=== PATIENT | male | born 1935 | race African-American/Black ===

== ENCOUNTER 2016-09-25 20:34 | Observation (INO) | payer OTHER ==
--- NOTE | ~2016-09-25 | HP ---
History And Physical [place] [id number] [facility] [place] [address] NAME: EUGENIE VALLEJO : 35 STATUS : ADM Claude PAT#: [id number] AGE: 81 ADM/REG DATE : 09/25/16 MR#: [id number] REPORT SERV DATE: 09/26/16 DICTATED BY: SHOLA ELDRIDGE DATE: 09/26/16 REPORT STATUS : Draft TRANSCRIBED BY: MODL DATE: 09/26/16 DATE OF ADMISSION: 09/25/2016 CHIEF COMPLAINT: An 81-year-old male, presenting with abdominal pain and nausea. HISTORY OF PRESENT ILLNESS: The patient's history was obtained through careful interview with the patient and daughter coupled with review of [facility] medical records. The patient for several days now has felt "a stress in my stomach," but this afternoon the abdominal pain became unbearable, it had been up to about a 9/10 severity and he had not had a bowel movement in about three or four days. He had to call the ambulance because he was feeling so dizzy and lightheaded that he felt he might pass out, and when the ambulance arrived, he finally had a large diarrhea like bowel movement and lost bowel continence. Since that time he has had two more bowel movements as well. He has had nausea, but no vomiting. He describes abdominal pain right now that is a bloating, "ill" feeling, 5/10 severity. He has felt hot, but no fevers or chills. No palpitations. No shortness of breath. No chest pain. He does have urinary frequency and has had mild dysuria with stinging with initiation of urine flow. REVIEW OF SYSTEMS: Otherwise, a 14-point review of systems was obtained and was negative. PAST MEDICAL HISTORY: 1. Small bowel obstruction. 2. Prostate cancer diagnosed in 2014 with 39 radiation treatments, Lupron treatments, with radiation completed in early 2017. 3. Benign prostatic hypertrophy. 4. Abdominal aortic aneurysm 4.2 cm. 5. MRSA and Pseudomonas urinary tract infections. 6. Urethral stricture status post intervention under the care Dr. Monterroso. 7. Neurogenic bladder, but does not self catheterize. 8. Hiatal hernia. 9. Right hip bursitis. 10.Spinal stenosis. 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 Now using a scooter and a walker. PAST SURGICAL HISTORY: History And Physical [address] [place]. [address] NAME: EUGENIE VALLEJO : 35 STATUS : ADM Claude PAT#: [id number] AGE: 81 ADM/REG DATE : 09/25/16 MR#: [id number] REPORT SERV DATE: 09/26/16 DICTATED BY: SHOLA ELDRIDGE DATE: 09/26/16 REPORT STATUS : Draft TRANSCRIBED BY: VERONICA DATE: 09/26/16 1. Colectomy for a volvulus under the care of Dr. Whyte. 2. Small bowel obstruction adhesiolysis. 3. 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 4. Bilateral inguinal hernia repair. 5. Appendectomy. ALLERGIES: TO FLEXERIL AND METHOCARBAMOL. SOCIAL HISTORY: Quit smoking in 1972. No alcohol abuse. He is , but is debilitated from arthritis. The patient uses a cane, walker, or scooter. He has three children. 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 FAMILY HISTORY: Brother and father with lung cancer. Sister with breast cancer. Strong family history of heart disease. CURRENT MEDICATIONS: 1. Cinnamon. 2. Linzess 145 mcg p.o. daily. 3. MiraLAX packet. 4. L-arginine. 5. Cranberry Extract. PHYSICAL EXAMINATION: VITAL SIGNS: Temperature 97.7, pulse 76, blood pressure 115/67, respiratory rate 16, and O2 saturation 100% on 2 L nasal cannula. GENERAL: A pleasant, cooperative male, in no particular distress at this time. HEENT: Pupils equal, round, and reactive to light. No conjunctival pallor. No scleral icterus. Nares are patent. Oropharynx is clear of obstruction. Very dry mucous membranes. NECK: Trachea midline. No thyromegaly. LYMPH: No cervical lymphadenopathy. No supraclavicular lymphadenopathy. RESPIRATORY: Clear to auscultation at bases. No wheezes, rales, or rhonchi. Normal respiratory effort. CARDIOVASCULAR: Regular rate and rhythm. No murmurs, rubs, or gallops. No extremity edema is appreciated. ABDOMEN: Abdomen is now completely soft, maybe some mild distention with tympanic resonance percussed throughout, but the patient does have active bowel tones. No hepatosplenomegaly. DERMATOLOGICAL: Warm and dry extremities. No pallor. No cyanosis. PSYCHIATRIC: Normal affect. Good mood. Alert and oriented x3. LABORATORY DATA: Troponin negative. INR 1.1. White blood cell count 9.2, hemoglobin 14, hematocrit 41, and platelets 181. Sodium 139, potassium 3.9, chloride 103, bicarb 29, BUN 18, creatinine 1.51, and glucose 141. History And Physical [address] [address] NAME: EUGENIE VALLEJO : 35 STATUS : ADM Claude PAT#: [id number] AGE: 81 ADM/REG DATE : 09/25/16 MR#: [id number] REPORT SERV DATE: 09/26/16 DICTATED BY: SHOLA ELDRIDGE DATE: 09/26/16 REPORT STATUS : Draft TRANSCRIBED BY: VERONICA DATE: 09/26/16 STUDIES: 1. Chest x-ray by my own evaluation shows no acute cardiopulmonary process. 2. EKG by my own evaluation shows sinus rhythm, no major abnormalities. 3. CT scan of the abdomen shows partial small bowel obstruction. ASSESSMENT AND PLAN: 1. Dehydration with acute kidney injury. Place on IV fluids. 2. Dysuria. Check urinalysis. 3. Partial small bowel obstruction. Clinically appears to be spontaneously resolving. We will provide supportive care and monitor. KPL/MODL Shola Eldridge M.D. / [id number] CC: Annamarie Martinez M.D. Richard Hunter Jennings III, M.D.
--- NOTE | ~2016-09-25 | DS ---
Discharge Summary [place] [address] [place]. [address] NAME: EUGENIE VALLEJO : 35 STATUS : DIS Claude PAT#: [id number] AGE: 81 ADM/REG DATE : 09/25/16 MR#: [id number] REPORT SERV DATE: 09/28/16 DICTATED BY: DENY EUGENE DATE: 09/27/16 REPORT STATUS : Draft TRANSCRIBED BY: MODL DATE: 09/27/16 ADMISSION DATE: 09/25/2016 DISCHARGE DATE: 09/27/2016 PRINCIPAL DIAGNOSES: Acute food poisoning with intractable nausea, vomiting, diarrhea, dehydration, acute kidney injury. SECONDARY DIAGNOSES: History of prostate cancer with chronic urinary retention. HISTORY OF PRESENT ILLESS: Please see Dr. Núñez's dictation 09/25/2016. HOSPITAL COURSE: The patient admitted with questionable partial small bowel obstruction, however, based on CT images, however, the patient's clinical correlation did not correlate with that as he was having large volume diarrhea in association with nausea and vomiting following the consumption of 2 cans of sardines. The patient received aggressive IV hydration, symptomatic care. The vomiting actually improved pretty quickly. Diarrhea persisted for another day. His diet was advanced successfully and by 09/27/2016, he had a normal exam, felt well, met the maximum benefit of hospitalization, released home in satisfactory condition. Follow Dr. Ruperto Lazo in one to two weeks. Reglan over-the- counter therapies were recommended including resuming his Linzess and MiraLAX as needed. DICTATED BY: Annamarie Martinez/VERONICA Deny Eugene M.D. / [id number] CC: Annamarie Martinez M.D.
[2016-09-25 20:06] LABS: BASOPHILS 0.1 %; BASOPHILS ABSOLUTE 0.01 10/3/uL (0.0-0.16); EOSINOPHILS ABSOLUTE 0.18 10/3/uL (0.0-0.53); ER CBC TAT 0 Hrs 07 Mins; IMMATURE GRANULOCYTES 0.3 %; IMMATURE GRANULOCYTES ABSOLUTE 0.03 10/3/uL (0.0-0.11); LYMPHOCYTES 9.7 %; LYMPHOCYTES ABSOLUTE 0.89 10/3/uL (0.67-4.30); MEAN CORPUSCULAR HEMOGLOB 28.2 pg (26.0-34.0); MEAN CORPUSCULAR VOLUME 83.1 fL (80-100); MEAN PLATELET VOLUME 10.4 fL (9.2-13.0); MONOCYTES 7.2 %; MONOCYTES ABSOLUTE 0.66 10/3/uL (0.21-1.20); NEUTROPHILS 80.7 %; NEUTROPHILS ABSOLUTE 7.43 10/3/uL (2.02-8.40); PLATELET COUNT 181 10/3/uL (150-400); RBC DISTRIBUTION WIDTH 14.2 % (12.0-16.0); RED CELL COUNT 4.97 10/6/uL (4.7-6.1); WHITE BLOOD CELLS 9.2 10/3/uL (4.5-10.5)
[2016-09-25 20:11] LABS: HEMATOCRIT 41.3 % (40.0-51.0); MANUAL DIFF NO %; MEAN CORPUS HGB CONC 33.9 g/dL (32.0-36.0)
[2016-09-25 20:16] LABS: INTERNATIONAL NORMAL RATI 1.1 UNITS (-); PARTIAL THROMBO TIME 27.1 SEC (22.5-37.2)
[2016-09-25 20:25] LABS: CHEST PAIN PROFILE TAT 0 Hrs 26 Mins; CHLORIDE, SERUM 103 MMOL/L (96-112); CO2 (CARBON DIOXIDE) 29 MMOL/L (24-34); CREATININE 1.51 MG/DL (0.70-1.30); GFR AFRICAN AMERICAN 49 ML/MIN (>=60); GFR NON AFRICAN AMERICAN 43 ML/MIN (>=60); GLUCOSE, SERUM 141 MG/DL (60-99); POTASSIUM, SERUM 3.9 MMOL/L (3.5-5.3); SODIUM, SERUM 139 MMOL/L (135-148); TROPONIN I <0.02 NG/ML (<0.05)
[2016-09-25 20:27] LABS: BUN (BLOOD UREA NITROGEN) 18 MG/DL (6-23); CALCIUM, SERUM 9.5 MG/DL (8.5-10.4)
[~2016-09-25 20:34] MED LIST: ACIDOPHILU1 PO; ARGININE PO; BACDS PO; CLINDA150 PO; CRANBERRY1 TAB PO; DENIES HOME MEDS; ECHINACEA PO; FLOMAX4 PO; GARLIC PO; IBU-200200 MG PO; L-ARGININE PO; LINZESS 145 M145 MCG PO; LIOR10 PO; MAGNESIUM OTC PO; MAGNESIUM TABLET PO; MIRALAXPKT PO; MULTIVIT/MIN PO; NEUR100 PO; PEP20 PO; PRILO PO; SAW PALMETT2 PO; VITAMIN B PO; VITC500 PO; VITE200U PO; [UNRECOGNIZED DRUG - OTHER] PO; [UNRECOGNIZED DRUG - OTHER] PO; [UNRECOGNIZED DRUG - OTHER] PO
[2016-09-25] MEDS ORDERED: LINZESS 145 M145 MCG PO (21:08)
[2016-09-25] MEDS ORDERED: MIRALAX POWDER1 PKT PO (21:09)
[2016-09-25] MEDS ORDERED: AZO CRANBERRY PO (21:09)
[2016-09-25] MEDS ORDERED: L-ARGININE PO (21:09)
[2016-09-25] MEDS ORDERED: CINNAMONPO PO (21:10)
[2016-09-26 07:25] LABS: BASOPHILS 0.1 %; BASOPHILS ABSOLUTE 0.01 10/3/uL (0.0-0.16); EOSINOPHILS 0.4 %; EOSINOPHILS ABSOLUTE 0.03 10/3/uL (0.0-0.53); HEMATOCRIT 40.9 % (40.0-51.0); HEMOGLOBIN 13.8 g/dL (13.6-17.8); IMMATURE GRANULOCYTES 0.2 %; IMMATURE GRANULOCYTES ABSOLUTE 0.02 10/3/uL (0.0-0.11); LYMPHOCYTES 10.3 %; LYMPHOCYTES ABSOLUTE 0.86 10/3/uL (0.67-4.30); MEAN CORPUS HGB CONC 33.7 g/dL (32.0-36.0); MEAN CORPUSCULAR HEMOGLOB 28.2 pg (26.0-34.0); MEAN CORPUSCULAR VOLUME 83.6 fL (80-100); MEAN PLATELET VOLUME 10.4 fL (9.2-13.0); MONOCYTES 5.7 %; MONOCYTES ABSOLUTE 0.48 10/3/uL (0.21-1.20); NEUTROPHILS 83.3 %; NEUTROPHILS ABSOLUTE 6.95 10/3/uL (2.02-8.40); PLATELET COUNT 176 10/3/uL (150-400); RBC DISTRIBUTION WIDTH 14.2 % (12.0-16.0); RED CELL COUNT 4.89 10/6/uL (4.7-6.1); WHITE BLOOD CELLS 8.4 10/3/uL (4.5-10.5)
[2016-09-26 07:26] LABS: MANUAL DIFF NO %
[2016-09-26 07:31] LABS: ASCORBIC ACID (UR NOT ORDER) NEG (NEG); BILIRUBIN, URINE NEGATIVE (NEG); KETONE, URINE TRACE MG/DL (NEG); LEUKOCYTE ESTERASE(NOT OR SMALL (NEG); WBC (NOT ORDERED) (RFLEX) 32 (0-5)
[2016-09-26 07:32] LABS: INTERNATIONAL NORMAL RATI 1.1 UNITS (-); PARTIAL THROMBO TIME 28.4 SEC (22.5-37.2); PROTIME (NOT ORD) 14.5 SEC (12.0-14.5)
[2016-09-26 07:48] LABS: A/G RATIO 0.8 (0.7-1.9); ALBUMIN 3.5 G/DL (3.5-5.0); BUN (BLOOD UREA NITROGEN) 21 MG/DL (6-23); CALCIUM, SERUM 9.6 MG/DL (8.5-10.4); CHLORIDE, SERUM 101 MMOL/L (96-112); CO2 (CARBON DIOXIDE) 28 MMOL/L (24-34); CREATININE 1.48 MG/DL (0.70-1.30); GFR AFRICAN AMERICAN 51 ML/MIN (>=60); GFR NON AFRICAN AMERICAN 44 ML/MIN (>=60); GLOBULIN 4.5 G/DL (2.5-4.1); GLUCOSE, SERUM 160 MG/DL (60-99); SGOT(AST) 15 U/L (5-40); SGPT(ALT) 17 U/L (5-65); SODIUM, SERUM 138 MMOL/L (135-148); TOTAL BILIRUBIN 0.9 MG/DL (0-1.2)
[2016-09-26 07:49] LABS: ALKALINE PHOSPHATASE 84 U/L (45-117)
[2016-09-27 09:24] LABS: BUN (BLOOD UREA NITROGEN) 16 MG/DL (6-23); CALCIUM, SERUM 8.9 MG/DL (8.5-10.4); CHLORIDE, SERUM 105 MMOL/L (96-112); CO2 (CARBON DIOXIDE) 29 MMOL/L (24-34); CREATININE 1.11 MG/DL (0.70-1.30); GFR AFRICAN AMERICAN 72 ML/MIN (>=60); GFR NON AFRICAN AMERICAN 62 ML/MIN (>=60); GLUCOSE, SERUM 128 MG/DL (60-99); POTASSIUM, SERUM 4.2 MMOL/L (3.5-5.3); SODIUM, SERUM 138 MMOL/L (135-148)
== END 2016-09-27 19:47 | disposition home or self-care (01) ==
LOC: ER 20:34 → 4SO 23:44
PROVIDERS: Hospitalist; Internal Medicine
DX: E86.0 Dehydration (principal); N17.9 Acute kidney failure, unspecified; R30.0 Dysuria; N40.0 Benign prostatic hyperplasia without lower urinary tract symptoms; K44.9 Diaphragmatic hernia without obstruction or gangrene; Z90.49 Acquired absence of other specified parts of digestive tract; Z88.8 Allergy status to other drugs, medicaments and biological substances; Z79.899 Other long term (current) drug therapy
CPT/HCPCS: 71010; 74000; 74020; 74176; 80048; 80053; 81001; 82962; 83605; 83735; 84443; 84484; 85025; 85610; 85730; 87086; 93005; 96372; 96374; 96375; 96376; 99285; A9270-GY; G0378; J1580; J2405